=== PATIENT | male | born 1975 | race Caucasian/White ===

== ENCOUNTER → 2018-07-25 17:45 | Outpatient (CLI) | payer OTHER, SELFPAY | PROVIDERS: Family Provider Family Medicine; PCP Family Medicine; Referring Provider Physician Assistant; Visit Provider Physician Assistant | DX: J02.9 Acute pharyngitis, unspecified (principal) | CPT/HCPCS: 87081 ==

== ENCOUNTER → 2018-12-25 | Outpatient (CLI) | payer OTHER, SELFPAY ==
--- NOTE | 2018-12-25 07:45 | VDLE_ITS ---
Reason For Study: venous insufficinecy RIGHT LEFT CFV is compressible, spontaneous, phasic, CFV is compressible, spontaneous, phasic, competent and demonstrates normal competent, and demonstrates normal augmentation. augmentation. FV is compressible, spontaneous, phasic, FV is compressible, spontaneous, phasic, competent and demonstrates normal competent and demonstrates normal augmentation. augmentation. POP V is compressible, spontaneous, phasic, POP V is compressible, spontaneous, phasic, competent and demonstrates normal competent and demonstrates normal augmentation. augmentation. T/P Trunk is compressible. T/P Trunk is compressible. PTV is compressible. PTV is compressible. RT PerV is compressible. LT PerV is compressible. S-F Junction is incompetent for greater S-F Junction is competent. than .5 seconds. GSV is incompetent for greater than .5 GSV is incompetent for greater than .5 seconds. GSV measures .52 x .6 cm. seconds. GSV measures .6 x .73 cm. SSV is incompetent for greater than .5 SSV is incompetent for greater than .5 seconds. SSV measures .2 x .22 cm. seconds. SSV measures .27 x .25 cm. ASV below the knee is incompetent for greater ASV below the knee is incompetent for greater than .5 seconds. ASV measures .16 x .16 cm. than .5 seconds. ASV measures .2 x .22 cm. Transit Operator Vein 12 cm proximal to the medial Transit Operator Vein 7 cm proximal to the medial malleolus is incompetent for greater than .5 malleolus is incompetent for greater than .5 seconds. seconds. Procedure Exam performed in department. The exam was diagnostic. Patient was scanned in reverse Trendelenburg position during reflux assessment. Interpretation Summary Deep veins of the lower extremities are bilaterally patent and compressible segmentally. There is no evidence of deep vein thrombosis on either side. Valvular competence appears intact within the proximal deep venous systems bilaterally. The greater saphenous veins appear bilaterally patent and compressible segmentally. The right sapheno-femoral junction is incompetent . The left sapheno- femoral junction is competent . Segmental valvular incompetence is noted within the greater saphenous veins bilaterally. Small saphenous veins are patent and incompetent bilaterally. An incompetent accessory saphenous vein is noted below the knee in both lower extremities. An incompetent boarding room fixer vein is noted in the right calf, located 7 centimeters proximal to the right medial malleolus. An incompetent boarding room fixer vein is noted in the left calf, located 12 centimeters proximal to the left medial malleolus. Ordering Physician: Harry Lujan Referring Physician: Harry Lujan Performed By: Renny León, RVT
== END | disposition home or self-care (01) ==
LOC: CVS 07:43
PROVIDERS: Family Provider Family Medicine; PCP Family Medicine; Referring Provider Family Medicine; Visit Provider Family Medicine
DX: I87.2 Venous insufficiency (chronic) (peripheral) (principal); I83.893 Varicose veins of bilateral lower extremities with other complications
CPT/HCPCS: 93970

== ENCOUNTER 2019-08-01 05:59 | Day surgery (SDC) | payer OTHER, SELFPAY ==
[2018-07-25 13:20] VITALS: BMI 36.3
--- NOTE | 2019-07-20 20:31 | HP.PCM_ITS ---
(1) Chronic venous insufficiency Status: Chronic Code(s): I87.2 - Venous insufficiency (chronic) (peripheral) (2) Varicose veins with inflammation Status: Chronic Code(s): I83.10 - Varicose veins of unspecified lower extremity with inflammation (3) Leg pain, bilateral Status: Chronic Code(s): M79.604 - Pain in right leg; M79.605 - Pain in left leg (4) Lipodermatosclerosis of right lower extremity Status: Chronic Code(s): I83.11 - Varicose veins of right lower extremity with inflammation (5) Hyperpigmentation Status: Chronic Code(s): L81.9 - Disorder of pigmentation, unspecified History of Present Illness Date of Service: 08/01/19 Chief Complaint: Chronic venous insufficiency, varicose veins with inflammation, leg pain?right lower extremity History of Wound: This is a 43-year-old male with a long-standing history of chronic venous disease. He suffers from chronic venous insufficiency, varicose veins with inflammation, and leg pain in both lower extremities. He complains of pain, aching, discomfort, and heaviness in his lower extremities. The symptoms have persisted for many years, and are becoming increasingly more severe. He denies swelling in his lower extremities. He is undergone no prior vein procedures in the past. The patient is active. He sleeps in a flat position at night. His duplex examination has been performed, revealing incompetence of the right great saphenous vein, the right small saphenous vein, and accessory saphenous vein below the right knee, and a sound editor vein located 7 cm proximal to the right medial malleolus. The implications of this diagnosis were discussed with the patient in detail. The options of management were fully explained. Conservative treatment measures were implemented, including leg elevation, avoidance of idle standing and sitting, graduated compression stockings, weight control measures, active lifestyle, [id number] analgesics, etc. Despite these conservative treatment measures, the patient has remained symptomatic, with symptoms which have adversely affect her daily activities, quality of life, and job functions. Past Medical History Past Medical History: Chronic Problems (Last Reviewed 08/18/18 @ 13:15 by Aimee Galvan) Chronic venous insufficiency (Chronic) Varicose veins with inflammation (Chronic) Leg pain, bilateral (Chronic) Lipodermatosclerosis of right lower extremity (Chronic) Hyperpigmentation (Chronic) Past Medical History: Patient has a history of hypertension, hyperlipidemia, gout, and tobacco use. His history is negative for myocardial infarction, congestive heart failure, diabetes mellitus, cerebrovascular accident, cancer, renal disease, pulmonary disease, thyroid disease, peripheral arterial occlusive disease, gastroesophageal reflux disease, and arthritis. Surgical History: appendectomy, tonsillectomy, - - The patient has undergone surgery on his left ring finger, and vasectomy. Allergies/Adverse Reactions: Allergies No Known Allergies Allergy (Unverified 08/18/18 13:14) Home Medications: Ambulatory Orders Medication Instructions Recorded allopurinol 100 mg tablet 100 mg PO DAILY 07/25/18 hydrochlorothiazide 12.5 mg tablet 12.5 mg PO DAILY 07/25/18 losartan 50 mg tablet 50 mg PO DAILY 07/25/18 potassium chloride ER 10 mEq 10 meq PO DAILY 07/25/18 capsule,extended release erythromycin 5 mg/gram (0.5 %) eye 1 applic OPHTHALMIC (EYE) TID #3.5 08/18/18 ointment g - Family History Paternal Family History: Family History (Last Reviewed 08/18/18 @ 13:15 by Aimee Galvan) Other CVA (cerebral vascular accident) Cancer Hypertension - - Patient's father at the age of 59 with a history of lymphoma and liver cancer. The patient's mother is living, age 70, with a history of cerebrovascular accident, hypertension, and obesity. Social History: The patient is employed as a registered nurse at [employer]. Lives: Spouse/ Significant Other Smoking Status: Never smoker Tobacco Use: Chew Alcohol: Occasional Drugs: None Review of Systems Constitutional: Denies: Chills, Fever, Weight Change Eyes: Denies: Pain, Vision Change HEENT: Denies: Difficulty Hearing, Difficulty Swallowing, Sinus Congestion Cardiovascular: Denies: Chest Pain, Palpitations Respiratory: Denies: Cough, Shortness of Breath Gastrointestinal: Denies: Diarrhea, Nausea, Vomiting Genitourinary: Denies: Dysuria, Hematuria Endocrine: Denies: Heat/ Cold Intolerance, Polydipsia, Polyuria Hematologic/ Lymphatic: Denies: Easy Bruising, Easy Bleeding - Physical Exam General: Alert, Oriented x3, Cooperative, No apparent distress, Well developed, Well nourished HEENT: Atraumatic, PERRLA, EOMI, Normocephalic Oral: Moist Mucosa, No Gingival or Mucosal Lesions/ Ulcerations Neck: Supple, No JVD, Negative Carotid Bruits, Negative Hepatojugular Reflux, No Nodes, No Nuchal Rigidity, Trachea Midline Lungs: Clear to auscultation, Normal air movement, No rhonchi, No wheeze, No rales Cardiovascular: Regular rate, Regular Rhythm, Normal S1, Normal S2, No murmurs Abdomen: Soft, Non Tender, Non-Distended Extremities: No clubbing, No cyanosis, No edema, No Calf Tenderness, - - Peripheral extremities are warm and well-perfused. Lipodermatosclerosis and hyperpigmentation is noted in the right medial gaiter area, and in the right medial supramalleolar area. Skin: No rashes, No breakdown Musculoskeletal: No Muscle Wasting Neurological: Cranial nerves II-XII grossly intact, Neuro grossly intact Psych/Mental Status: Normal Affect, Appropriate, Alert and oriented to time, place, person, mood and affect Assessment/Plan Assessment: This is a 43-year-old male with a long-standing history of chronic venous insufficiency, varicose veins with inflammation, leg pain involving his lower extremities. Conservative treatment measures have been implemented, which have failed to alleviate the patient's symptoms of pain, aching, and discomfort in his lower extremities. The patient's symptoms adversely affect his quality o f life, job functions, and daily activities. The indications and risks of endovenous laser ablation of the right great saphenous vein, the right small saphenous vein, the right accessory saphenous vein below the knee, and possibly the right incompetent sound editor vein located 7 cm proximal to the right medial malleolus have been discussed with the patient in detail. Plan: Patient is to be admitted for elective endovenous laser ablation of the right great saphenous vein, the right small saphenous vein, the right accessory saphenous vein below the knee, and possibly the incompetent right calf sound editor vein located 7 cm proximal to the right medial malleolus. The indications and risks of the procedure have been discussed with the patient in detail. The appropriate preprocedure consent process has been undertaken.
[2019-08-01 06:18] VITALS: BP 138/90; PULSE 70; RESP 16; TEMP 36.6; O2SAT 97; BMI 35.4
[2019-08-01] MEDS: Lactated Ringers 1,000 ML 150 ML IV (06:29)
[2019-08-01] MEDS: Enoxaparin 30 MG/0.3 ML Syringe SC (06:40)
[2019-08-01] MEDS: Cefazolin 2 GM in 0.9% Normal Saline 100 ML IV (07:30)
--- NOTE | 2019-08-01 09:58 | DCINST_ITS ---
Discharge Diet: No Restrictions Discharge Activity: May Not Drive May shower in (days): 2 Weight Bearing Status: Weight bearing as tolerated Lifting Restrictions: 10 pounds Keep extremity elevated above heart level: Right Leg Call your doctor if your incision/area has: Continuous Slow Oozing Call your doctor if you observe: Inability to urinate, Shortness of breath, Dizziness, Chest pain, Prolonged hiccoughing, Increased palpitations (irregular heartbeat), Uncontrolled pain Suture Line Care: Avoid Pulling/Pushing Change Dressing in (Days):: 2 - Then rewrap with Naveen daily from base of toes to upper thigh Allergies/Adverse Reactions: Allergies No Known Allergies Allergy (Unverified 08/01/19 06:17) Medications to take at Discharge allopurinol 100 mg tablet 200 mg PO DAILY 07/25/18 hydrochlorothiazide 12.5 mg tablet 25 mg PO DAILY 07/25/18 losartan 50 mg tablet 50 mg PO DAILY 07/25/18 Primary Care Physician: Harry Lujan DO [Primary Care Provider] - Test Results: Test results from this visit will be discussed in further detail at your follow- up appointment, if applicable. Please Follow Up With: Rafael Morton MD - Call [phone] to schedule a followup appointment. When: 10-14 days
[2019-08-01 10:01] VITALS: BP 110/66; BP 138/90; PULSE 79; RESP 16; TEMP 36.7; O2SAT 92
[2019-08-01 10:15] VITALS: BP 106/65; BP 138/90; PULSE 77; RESP 16; O2SAT 92
[2019-08-01 10:30] VITALS: BP 123/75; BP 138/90; PULSE 80; RESP 16; O2SAT 94
[2019-08-01 10:36] VITALS: BP 115/73; BP 138/90; PULSE 78; RESP 16; O2SAT 94
[2019-08-01] MEDS: oxyCODONE 5 MG Tablet PO (11:12)
[2019-08-01 11:51] VITALS: BP 114/71; BP 138/90; PULSE 74; RESP 16; TEMP 36.6; O2SAT 92
--- NOTE | 2019-08-11 13:46 | OP.PCM_ITS ---
Problem List (1) Chronic venous insufficiency Status: Chronic (2) Varicose veins with inflammation Status: Chronic (3) Leg pain, bilateral Status: Chronic (4) Lipodermatosclerosis of right lower extremity Status: Chronic (5) Hyperpigmentation Status: Chronic Report of Operation Date of Procedure: 08/01/19 Pre-Operative Diagnosis: Chronic venous insufficency , Varicose veins with inflamation, Leg pain, Lipodermatosclerosis, Hyperpigmentation - Right lower extremity Post-Operative Diagnosis: Chronic venous insufficency , Varicose veins with inflamation, Leg pain, Lipodermatosclerosis, Hyperpigmentation - Right lower extremity Surgery/Procedure Performed:: 1. Endovenous laser aation of the right great saphenous vein. 2. Endovenous laser ablation of the right small saphenous vein. 3. Endovenous laser ablation of the right accessory saphenous vein Description of Surgical Findings:: As above Type of Anesthesia:: General, Tumescent Specimen's removed: None Drains: None Estimated Blood Loss (mL): Minimal Description of Procedure: This is a 43-year-old male with a long-standing history of chronic venous insufficiency, varicose veins with inflammation, leg pain, and chronic venous skin changes affecting his right lower extremity. Venous duplex examination has been performed, revealing incompetence of the right great saphenous vein, the right small saphenous vein, the right accessory saphenous vein below the knee, and an incompetent crotch piece baster vein located approximately 7 cm proximal to the right medial malleolus. The implications of this diagnosis were discussed with the patient in detail. The options of management were fully explained. Conservative treatment measures were implemented, which included leg elevation, avoidance of idle standing and sitting, graduated compression stockings, weight control measures, active lifestyle, [id number] analgesics, etc. Despite these measures, the patient remained symptomatic, with symptoms which adversely affect her daily activities, quality of life, and job functions. The indications and risks of endovenous laser ablation of the right great saphenous vein, right small saphenous vein, right accessory saphenous vein, and incompetent right calf crotch piece baster vein were discussed with the patient in detail. The appropriate preprocedure consent process was undertaken. The patient underwent ultrasound marking of the right great saphenous vein, the right small saphenous vein, the right accessory saphenous vein below the knee, and the right incompetent crotch piece baster vein preoperatively. He was then brought to the operating room suite, placed supine upon the operating room table, where general anesthesia was administered by the anesthesia staff. The patient's right lower extremity and right groin were prepped and draped in the appropriate sterile manner. Patient was placed in reverse Trendelenburg position. Ul trasonography was used to image the right great saphenous vein in the distal calf. The micropuncture technique was used to access her right great saphenous vein percutaneously in the distal calf, inferior to the communication of the great saphenous vein with the incompetent crotch piece baster vein. In this regard, the decision was made to ablate the great saphenous vein across the origin of the incompetent crotch piece baster vein, thereby alleviating the need to perform endothermal ablation of the incompetent crotch piece baster vein itself. In this manner, a 0.018 inch guidewire was advanced intraluminally into the right great saphenous vein, and was visualized by ultrasonography. A micropuncture sheath was advanced over the guidewire. The 0.018 inch guidewire was exchanged for a 0.035 inch guidewire, which was then advanced intraluminally to a level just distal to the right sapheno?femoral junction, as confirmed by ultrasound imaging. A long 4 [place] sheath was then advanced over the guidewire, and its tip was positioned approximately 2 cm distal to the right sapheno?femoral junction. Attention was then directed to the incompetent right small saphenous vein. To enhance exposure, the right lower extremity was placed in an externally rotated position with the right knee flexed. Using ultrasound imaging and the micropuncture technique, a micropuncture sheath was introduced intraluminally into the right great saphenous vein near the inferior border of the right gastrocnemius muscle, and was left in place, capped, for subsequent access purposes. Attention was then directed to the incompetent right accessory saphenous vein below the knee. Using ultrasound imaging and the micropuncture technique, a micropuncture sheath was introduced intraluminally and was left in place, capped, for subsequent access purposes. Attention was then directed to the long 4 [place] sheath which had been previously placed intraluminally within the right great saphenous vein. Perivenous tumescent anesthesia was injected from the 4 [place] sheath exit site up to the tip of the sheath near the right sapheno?femoral junction. This was performed segmentally using ultrasound imaging. The AngioD[employer] laser fiber was then introduced into the 4 [place] sheath and coupled appropriately. Ultrasonography was used to confirm that the tip of the laser fiber was positioned within the right great saphenous vein, approximately 2-1/2 cm distal to the right sapheno-femoral junction. The patient was placed in Trendelenburg position and the laser fiber was activated. The AngioDynamics laser was slowly withdrawn at a constant rate throughout the length of the right great saphenous vein, thereby ablating the right great saphenous vein segmentally. The energy applied was approximately 60 to 80 J/cm. Following the laser ablation, the laser fiber and sheath were removed, and manual pressure was briefly applied to the percutaneous access site to achieve hemostasis. Attention was then directed to the micropuncture sheath which had been previously placed intraluminally within the right small saphenous vein. A 0.035 inch guidewire was introduced intraluminally and its tip was positioned within the proximal portion of the right small saphenous vein. A long 4 [place] sheath was advanced over the guidewire and into position intraluminally within the right small saphenous vein. Perivenous tumescent anesthesia was injected from the 4 [place] sheath exit site up to the tip of the sheath. This was performed segmentally using ultrasound imaging. The AngioDynamics laser fiber was then introduced into the 4 [place] sheath and coupled appropriately. Ultrasonography was used to confirm that the typical laser fiber was positioned within the proximal portion of the right small saphenous vein, several centimeters distal to its junction with the deep venous system, and remaining within the superficial portion of the right small saphenous vein. The patient was placed in Trendelenburg position and the laser fiber was activated. The AngioDynamics laser was slowly withdrawn at a constant rate throughout the length of the right small saphenous vein, thereby ablating the right small saphenous vein segmentally. The energy applied was approximately 60 to 80 J/cm. Following the laser ablation, the laser fiber and sheath were removed, and manual pressure was briefly applied to the percutaneous access site to achieve hemostasis. Attention was then directed to the micropuncture sheath which had been previously placed intraluminally within the right accessory saphenous vein below the knee. A 0.035 inch guidewire was introduced intraluminally and its tip was positioned within the proximal portion of the incompetent accessory saphenous vein. The long 4 [place] sheath was advanced over the guidewire and into position intraluminally within the incompetent accessory saphenous vein. Perivenous tumescent anesthesia was injected from the 4 [place] sheath exit site up to the tip of the sheath. This was performed segmentally using ultrasound imaging. The AngioDynamics laser fiber was then introduced into the 4 [place] sheath and coupled appropriately. Ultrasonography was used to confirm that the tip of the laser fiber was positioned within the proximal portion of the incompetent accessory saphenous vein, abutting the previously ablated great saphenous vein. The patient was placed in Trendelenburg position and the laser fiber was activated. The AngioDynamics laser was slowly withdrawn at a constant rate throughout the length of the incompetent accessory saphenous vein, thereby ablating the accessory saphenous vein segmentally. The energy applied was approximately 60 to 80 J/cm. Following the laser ablation, the laser fiber and sheath were removed, and manual pressure was briefly applied to the percutaneous access site to achieve hemostasis. After assuring satisfactory hemostasis, the access sites were approximated using Cavilon and Steri-Strips. Dry sterile gauze dressings were applied over each of the access sites, and the leg was wrapped from the base of the toes to the upper thigh with Kerlix, followed by Naveen wrap. The blood loss for the procedure was minimal. The sponge, needle, and instrument counts at the end of the procedure were correct. The patient tolerated the procedure well and was transported from the operating room to the postanesthesia care unit in stable condition. The amount of tumescent anesthesia utilized, number of joules applied, and treatment times were recorded separately. - Complications None - Admit VTE Documentation VTE Present on Admission: No VTE Mechan Device Prophylaxis: SCD's VTE Pharm Prophylaxis ordered?: Yes
== END 2019-08-01 11:58 | disposition home or self-care (01) ==
LOC: SDC 06:01 → AC 06:01
PROVIDERS: Family Provider Family Medicine; PCP Family Medicine; Referring Provider Surgery; Visit Provider Surgery
PROC: (CPT 36478; principal; 2019-08-01 07:15)
DX: I87.2 Venous insufficiency (chronic) (peripheral) (principal); M79.604 Pain in right leg; M79.605 Pain in left leg; I10 Essential (primary) hypertension; E78.5 Hyperlipidemia, unspecified; M10.9 Gout, unspecified; L81.9 Disorder of pigmentation, unspecified; F17.220 Nicotine dependence, chewing tobacco, uncomplicated; Z79.899 Other long term (current) drug therapy
CPT/HCPCS: 36478; 36479; 93971; J7040; J7120; J2405

== ENCOUNTER → 2019-08-06 10:55 | Outpatient (CLI) | payer OTHER, SELFPAY ==
[2019-08-01 06:18] VITALS: BMI 35.4
--- NOTE | 2019-08-06 10:58 | VDLE_ITS ---
Reason For Study: pain RIGHT LEFT GSV is normal. CFV is compressible, spontaneous, phasic, CFV is compressible, spontaneous, phasic, competent, and demonstrates normal competent and demonstrates normal augmentation. augmentation. FV is compressible, spontaneous, phasic, competent and demonstrates normal augmentation. POP V is compressible, spontaneous, phasic, competent and demonstrates normal augmentation. T/P Trunk is compressible. PTV is compressible. RT PerV is compressible. Gastroc V is dilated and noncompressible. Varicose veins below the knee are dilated and noncompressible. GSV, SSV, and ASV x 2 are occluded S/P EVLA. Procedure Exam performed in department. The exam was diagnostic. A preliminary report was called and/or faxed to Dr. Morton. Interpretation Summary Acute deep vein thrombosis is noted in the right gastrocnemius vein. The remainder of the right lower extremity deep venous system is patent and compressible. Valvular competence appears intact within the proximal deep venous system on the right . The right great saphenous vein, small saphenous vein, and accessory saphenous veins are occluded, consistent with a prior endothermal ablation procedure. Ordering Physician: Rafael Morton Performed By: Renny León RVT
== END ==
PROVIDERS: Family Provider Family Medicine; PCP Family Medicine; Referring Provider Surgery; Visit Provider Surgery
DX: M79.89 Other specified soft tissue disorders (principal); R52 Pain, unspecified; L53.9 Erythematous condition, unspecified; Z98.890 Other specified postprocedural states
CPT/HCPCS: 93971

== ENCOUNTER → 2019-09-03 07:46 | Outpatient (CLI) | payer OTHER, SELFPAY ==
--- NOTE | 2019-09-03 07:48 | VDLE_ITS ---
Reason For Study: DVT, chronic venous insufficiency RIGHT CFV is compressible, spontaneous, phasic, competent and demonstrates normal augmentation. FV is compressible, spontaneous, phasic, competent and demonstrates normal augmentation. POP V is compressible, spontaneous, phasic, competent and demonstrates normal augmentation. T/P Trunk is compressible. PTV is compressible. RT PerV is compressible. Chronic vein wall thickening is noted in the Gastroc V. GSV, SSV, and ASV x 2 are occluded S/P EVLA. Procedure Exam performed in department. The exam was diagnostic. Interpretation Summary Deep veins of the right lower extremity are patent and compressible segmentally. There is no evidence of right lower extremity deep vein thrombosis. Valvular competence appears intact within the proximal deep venous system on the right . Chronic vein wall thickening is noted in the right gastrocnemius vein, with resolution of the acute deep vein thrombosis previously identified on 08/06/2019. The right great saphenous vein, small saphenous vein, and accessory saphenous veins are occluded, consistent with a prior endothermal ablation procedure. Ordering Physician: Rafael Morton Performed By: Renny León RVT
== END ==
PROVIDERS: Family Provider Family Medicine; PCP Family Medicine; Referring Provider Surgery; Visit Provider Surgery
DX: I83.10 Varicose veins of unspecified lower extremity with inflammation (principal); I82.461 Acute embolism and thrombosis of right calf muscular vein
CPT/HCPCS: 93971

== ENCOUNTER 2021-07-02 05:58 | Day surgery (SDC) | payer OTHER, SELFPAY ==
[2021-07-02 06:16] VITALS: BP 125/84; PULSE 79; RESP 16; TEMP 36.1; O2SAT 99; BMI 34.8
--- NOTE | 2021-07-02 06:19 | PCM.HP.STD ---
HPI - General HPI Narrative HUGO GRACIA, is a 45 M who presents for screening colonoscopy. He has had no particular complaints. He has no family history of colon cancer. No bright red blood per rectum or melena. He did have right lower extremity venous ablation related to that a DVT and was on therapeutic anticoagulants for appropriate period of time. He is not currently on that. He does have hypertension and gout. No documented heart disease. No glucose intolerance. PFSH Medical History Alcohol use Back pain Chewing tobacco use DVT (deep venous thrombosis) Fracture of finger Gout History of edema History of stress test HTN (hypertension) Loss of consciousness Smoker Home Medications allopurinol 100 mg tablet 300 mg PO DAILY 07/25/18 [History Last Taken Unknown] hydrochlorothiazide 12.5 mg tablet 25 mg PO DAILY 07/25/18 [History Last Taken Unknown] losartan 50 mg tablet 50 mg PO DAILY 07/25/18 [History Last Taken 07/02/21 05:00] multivitamin 1 tab PO DAILY 06/25/21 [History Last Taken Unknown] Allergy/AdvReac Type Severity Reaction Status Date / Time No Known Allergies Allergy Verified 07/02/21 06:15 Family History Other CVA (cerebral vascular accident) Cancer Hypertension Surgical History (Updated 06/25/21 @ 14:32 by Tory Michele) History of appendectomy History of tonsillectomy Hx of surgical procedure Hx of vasectomy Social History (Updated 08/18/18 @ 13:32 by Harry RAMOS, RACHEL) Smoking Status: Current every day smoker tobacco type: smokeless tobacco alcohol intake: current Alcohol type: beer ROS Constitutional Constitutional: Reports systems reviewed and no addt'l complaints, except as documented Cardiovascular Cardiovascular: Denies chest pain Respiratory/Chest Respiratory/Chest: Denies shortness of breath at rest Gastrointestinal Gastrointestinal: Denies abdominal pain, change in bowel habits, hematochezia or melena Physical Exam Const alert, oriented x3 and no apparent distress General Appearance: cooperative and comfortable Eyes General Eye: normal appearance of both eyes Neck General: normal visual inspection Chest inspection of chest normal Resp Effort and Inspection: able to speak in complete sentences and symmetric chest movement Auscultation: clear to auscultation bilaterally Cardio regular rate and regular rhythm GI soft to palpation, non-tender and non-distended Extremity no calf tenderness Neuro oriented x3 Psych thought process normal Assessment & Plan Assessment/Plan (1) Screening for intestinal cancer: PLAN: I recommend to the patient a screening colonoscopy with possible biopsy or polypectomy as indicated. He presents via open access today. He has had an opportunity to ask and have questions answered. This will be his first screening colonoscopy. Robin Echevarria M.D., F.A.C.S.
[2021-07-02] MEDS: Lactated Ringers 1,000 ML 100 ML IV (06:29)
[2021-07-02 07:15] VITALS: BP 116/71; BP 125/84; PULSE 72; RESP 16; TEMP 36.2; O2SAT 96
--- NOTE | 2021-07-02 07:16 | OP.COLON_ITS ---
Patient Name: Chidi Gastelum Procedure Date: 07/02/2021 6:52 AM Date of : 1975 Age: 45 Procedure: Colonoscopy Indications: Screening for colorectal malignant neoplasm Providers: Robin Echevarria MD Medicines: See the Anesthesia note for documentation of the administered medications Patient Profile: Last Colonoscopy: none. The patient's first colonoscopy is today. Complications: No immediate complications. Procedure: Pre-Anesthesia Assessment: - Prior to the procedure, a History and Physical was performed, and patient medications and allergies were reviewed. The patient's tolerance of previous anesthesia was also reviewed. The risks and benefits of the procedure and the sedation options and risks were discussed with the patient. All questions were answered, and informed consent was obtained. Prior Anticoagulants: The patient has taken no previous anticoagulant or antiplatelet agents. ASA Grade Assessment: II - A patient with mild systemic disease. After reviewing the risks and benefits, the patient was deemed in satisfactory condition to undergo the procedure. After I obtained informed consent, the scope was passed under direct vision. Throughout the procedure, the patient's blood pressure, pulse, and oxygen saturations were monitored continuously. The colonoscope was introduced through the anus and advanced to the cecum, identified by appendiceal orifice and ileocecal valve. The colonoscopy was performed without difficulty. The patient tolerated the procedure well. The quality of the bowel preparation was good. The ileocecal valve and the appendiceal orifice were photographed. Scope In: 7:02:32 AM Scope Withdrawal Time 0 hours 6 minutes 26 seconds Scope Out: 7:11:51 AM Total Procedure Duration Time 0 hours 9 minutes 19 seconds Findings: The digital rectal exam findings include non-thrombosed internal hemorrhoids and internal hemorrhoids that prolapse with straining, but spontaneously regress to the resting position (Grade II). Pertinent negatives include normal prostate (size, shape, and consistency). A few diverticula were found in the sigmoid colon. The exam was otherwise without abnormality. Impression: - Non-thrombosed internal hemorrhoids and internal hemorrhoids that prolapse with straining, but spontaneously regress to the resting position (Grade II) found on digital rectal exam. - Diverticulosis in the sigmoid colon. - The examination was otherwise normal. - No specimens collected. Recommendation: - Discharge patient to home. - Resume previous diet. - Continue present medications. - Repeat colonoscopy in 10 years for screening purposes. Procedure Code(s): --- Professional --- 00533, Colonoscopy, flexible; diagnostic, including collection of specimen(s) by brushing or washing, when performed (separate procedure) Diagnosis Code(s): --- Professional --- Z12.11, Encounter for screening for malignant neoplasm of colon K64.1, Second degree hemorrhoids K57.30, Diverticulosis of large intestine without perforation or abscess without bleeding CPT copyright 2017 [employer]. All rights reserved. The codes documented in this report are preliminary and upon direct care professional review may be revised to meet current compliance requirements. Robin Echevarira MD 07/02/2021 7:15:45 AM This report has been signed electronically. Number of Addenda: 0 Note Initiated On: 07/02/2021 6:52 AM
--- NOTE | 2021-07-02 07:17 | OP.CCLET_ITS ---
07/02/2021 Harry Lujan [address] [place] [address] Re : Colonoscopy procedure for Chidi Gastelum Dear Dr. Lujan This procedure was performed on Friday, July 02, 2021. My impressions and recommendations are as follows: Impressions : - Non-thrombosed internal hemorrhoids and internal hemorrhoids that prolapse with straining, but spontaneously regress to the resting position (Grade II) found on digital rectal exam. - Diverticulosis in the sigmoid colon. - The examination was otherwise normal. - No specimens collected. Recommendations : - Discharge patient to home. - Resume previous diet. - Continue present medications. - Repeat colonoscopy in 10 years for screening purposes. My findings are described in the full procedure note, which is enclosed. If I can be of further assistance, please feel free to contact me at Doctor phone number(s): Work: . Sincerely, Robin Echevarria MD 07/02/2021 7:15:45 AM This report has been signed electronically.
[2021-07-02 07:20] VITALS: BP 110/71; BP 125/84; PULSE 70; RESP 16; O2SAT 96
[2021-07-02 07:25] VITALS: BP 113/68; BP 125/84; PULSE 75; RESP 16; O2SAT 97
[2021-07-02 07:29] VITALS: BP 116/70; BP 125/84; PULSE 65; RESP 16; TEMP 36.1; O2SAT 97
[2021-07-02 07:30] VITALS: BP 125/84
== END 2021-07-02 07:48 | disposition home or self-care (01) ==
LOC: EN 05:59 → AC 06:00
PROVIDERS: PCP Family Medicine; Referring Provider Family Medicine; Visit Provider Surgery
PROC: 0DJD8ZZ Inspection of Lower Intestinal Tract, Via Natural or Artificial Opening Endoscopic (ICD-10-PCS; CPT 45378; principal; 2021-07-02 06:55)
DX: K57.30 Diverticulosis of large intestine without perforation or abscess without bleeding (principal); K64.1 Second degree hemorrhoids; F17.220 Nicotine dependence, chewing tobacco, uncomplicated; I10 Essential (primary) hypertension; M10.9 Gout, unspecified; Z86.718 Personal history of other venous thrombosis and embolism; Z79.899 Other long term (current) drug therapy
CPT/HCPCS: 45378; J7120; J2405

== ENCOUNTER 2021-11-24 20:24 | Outpatient (CLI) | payer OTHER, SELFPAY | END 2021-11-24 23:59 | disposition home or self-care (01) | PROVIDERS: PCP Family Medicine; Visit Provider Family Medicine | DX: R06.83 Snoring (principal); R06.81 Apnea, not elsewhere classified; I10 Essential (primary) hypertension | CPT/HCPCS: 95810 ==

== ENCOUNTER → 2022-01-24 | Outpatient (CLI) | payer OTHER, SELFPAY | END | disposition home or self-care (01) | PROVIDERS: PCP Family Medicine; Visit Provider Family Medicine | DX: G47.33 Obstructive sleep apnea (adult) (pediatric) (principal) | CPT/HCPCS: 95811 ==

== ENCOUNTER → 2024-01-09 | Outpatient (CLI) | payer OTHER, SELFPAY ==
--- NOTE | 2024-01-09 16:48 | RAD_ITS ---
STUDY: X-RAY - LEFT FOOT CLINICAL: Male, 48 years old. L FOOT PAIN TECHNIQUE: 3 view(s) of the foot. COMPARISON: None. FINDINGS: Normal talus, calcaneus, and tarsal bones. Small plantar calcaneal enthesophyte. Tiny posterior calcaneal enthesophyte. Normal visualized subtalar, talonavicular, calcaneocuboid, tarsal and tarsometatarsal articulations. Normal metatarsi. Normal metatarsophalangeal joint of the great toe. Normal tibial and fibular sesamoid bones. Normal interphalangeal joint of the great toe. Normal phalanges of the great toe. Normal second through fifth metatarsophalangeal joints. Normal interphalangeal joints and phalanges of the lesser toes. The soft tissue structures are unremarkable. RAD/Foot min 3 Views IMPRESSION: Normal x-ray examination of the foot. Electronically Signed: Yash Harper MD at 0:11 EDT ,
== END | disposition home or self-care (01) ==
LOC: RAD 16:47
PROVIDERS: PCP Family Medicine; Referring Provider Family Medicine; Visit Provider Family Medicine
DX: M79.672 Pain in left foot (principal)
CPT/HCPCS: 73630

== ENCOUNTER → 2024-06-12 | Outpatient (CLI) | payer OTHER, SELFPAY ==
--- NOTE | 2024-06-12 10:45 | US_ITS ---
STUDY: SCROTUM ULTRASOUND REASON FOR EXAM: Male, 48 years old. L ORCHITIS recurrant TECHNIQUE: Ultrasound evaluation of the scrotum was performed with color Doppler and static garcia-scale imaging. COMPARISON: None. FINDINGS: RIGHT TESTICLE INTRATESTICULAR: There is a normal size of the right testicle. The right testicle measures 3.8 cm x 2.6 cm x 2.5 cm. There is a homogenous echotexture. There is normal arterial and normal venous vascularity. There is no demonstrated right testicular mass or cyst. EXTRATESTICULAR: The epididymis is normal in size. The epididymis head measures 1.1 cm x 1.2 cm x 0.7 cm. There is minimally increased (hyperemic) vascularity of the epididymis. There is no demonstrated epididymal cystic structure. There is a moderate size hydrocele. There is no demonstrated varicocele. There is no demonstrated extratesticular mass or cyst. LEFT TESTICLE INTRATESTICULAR: There is a normal size of the left testicle. The left testicle measures 4.7 cm x 2.8 cm x 2.6 cm. There is a homogenous echotexture. There is normal arterial and normal venous vascularity. There is no demonstrated left testicular mass or cyst. EXTRATESTICULAR: The epididymis is normal in size. The epididymis head measures 1.3 cm x 1.2 cm x 0.9 cm. There is normal vascularity of the epididymis. There is no demonstrated epididymal cystic structure. There is a large hydrocele. There is no demonstrated varicocele. There is no demonstrated extratesticular mass or cyst. US/Testicular with Arterial Flow IMPRESSION: Bilateral hydroceles left greater than right. Minimally increased vascularity of the right epididymis. Electronically Signed: Anthony Lemus MD at 12:03 EDT ,
== END | disposition home or self-care (01) ==
LOC: US 10:43
PROVIDERS: PCP Family Medicine; Referring Provider Family Medicine; Visit Provider Family Medicine
DX: N45.2 Orchitis (principal)
CPT/HCPCS: 76870; 93976

== ENCOUNTER 2024-07-24 08:59 | Day surgery (SDC) | payer OTHER, SELFPAY ==
[2024-07-24] VITALS (9 sets, daily range): BP systolic 127–146; BP diastolic 75–89; PULSE 56–74; RESP 16; TEMP 36.1–36.5; O2SAT 97–100; BMI 36.5
[2024-07-24] MEDS: Lactated Ringers 1,000 ML 15 ML IV (09:30)
[2024-07-24] MEDS: Bupivacaine Mpf 0.5% 30 ML VIAL (11:04)
[2024-07-24] MEDS: Cefazolin 2 GM in Syringe IV (11:31)
== END 2024-07-24 12:59 | disposition home or self-care (01) ==
LOC: SDC 09:00 → AC 09:02
PROVIDERS: PCP Family Medicine; Referring Provider Urology; Visit Provider Urology
PROC: (CPT 55040; principal; 2024-07-24 10:45)
DX: N43.3 Hydrocele, unspecified (principal); I10 Essential (primary) hypertension; M10.9 Gout, unspecified; F17.220 Nicotine dependence, chewing tobacco, uncomplicated; G47.30 Sleep apnea, unspecified; Z98.52 Vasectomy status; Z86.718 Personal history of other venous thrombosis and embolism; Z79.899 Other long term (current) drug therapy
CPT/HCPCS: 55040; 00920; 88302; J7120; J2405

== ENCOUNTER → 2025-06-16 | Outpatient (CLI) | payer OTHER, SELFPAY ==
[2025-06-16 11:40] LABS: PSA,Total - Annual Screen 0.41 ng/mL (0.02-4.00)
== END | disposition home or self-care (01) ==
PROVIDERS: PCP Family Medicine; Referring Provider Family Medicine; Visit Provider Family Medicine
DX: Z12.5 Encounter for screening for malignant neoplasm of prostate (principal)
CPT/HCPCS: 36415; 84153; G0103

== ENCOUNTER → 2025-07-09 | Outpatient (CLI) | payer OTHER, SELFPAY ==
--- NOTE | 2025-07-09 06:55 | CT_ITS ---
PROCEDURE: LIMITED CHEST CT CARDIAC ONLY 07/09/2025 REASON FOR EXAM: SCREENING Hypertension. TECHNIQUE: Procedure Code: [id number] Modality: CT Procedure: LIMITED CHEST CT CARDIAC ONLY One or more dose reduction techniques were used (e.g., Automated exposure control, adjustment of the mA and/or kV according to patient size, use of iterative reconstruction technique). RADIATION DOSE SUMMARY: CTDlvol: 22.58 mGy DLP: 361.30 mGycm COMPARISON: None. CT/Limited Chest CT Cardiac Only IMPRESSION: Limited imaging of the lungs demonstrates no acute process. No pleural effusion or pneumothorax is seen in visualized areas. No adenopathy is noted. The visualized upper abdomen demonstrates no significant abnormality. Reading Location: [id number]
--- OUTSIDE RECORDS SUMMARY | 2025-07-09 06:56 | XMS RPT_ITS | CCD ---
Author Organization [facility] Inform ion Partnership [facility] Care Team Providers Care Biztalk Architect Name Role Phone Dr. Harry Lujan DO Primary Care Physician [phone] Assessment, Health Risk Attending Physician Unav ailable Assessment, Health Risk Referring Provider Unava ilable Dr. Harry Lujan DO Attending Physician Dr. Harry Lujan DO Referring Provider Harry Lujna Referring Unavailable Harry Lujan Attending Unavailable Harry Lujan Primary Care Unavailable Harry Lujan Primary Care Unavailable Assessment, Health Risk Referring Unavaila ble Assessment, Health Risk Attending Unavaila ble Harry Lujan Referring Unavailable Harry Lujan Attending Unavailable Harry Lujan Primary Care Unavailable Harry Lujan Primary Care Unavailable Rafael Young Referring Unavailable Rafael Young Attending Unavailable Medications Current Medications Medication Drug Class(es) Dates Sig (Normalized) Sig (Original) allopurinol 100 mg oral tablet (2 sources) Xanthine Oxidase Inhibitor Start: 07-25-2018 take 3 tablets by mouth once daily Start: 07-25-2018 take 300 mg by mouth once olimpia y Allopurinol Active 300 MG PO DAILY July 25, 2018 1:00am cephalexin 500 mg oral capsule (1 source) Cephalosporin Antibacterial Start: 07-24-2024 take 1 capsule by mouth three times daily hydroCHLOROthiazide 12.5 mg oral tablet (2 sources) Thiazide Diuretic Start: 07-25-2018 take 2 tablets by mouth once daily Start: 07-25-2018 take 25 mg by mouth once daily Hydrochlorothiazide Active 25 MG PO DAILY July 25, 2018 1:00am losartan potassium 50 mg oral tablet (2 sources) Angiotensin 2 Receptor Kell Start: 07-25-2018 take 1 tablet by mouth once daily Multivitamin preparation (1 source) Start: 06-25-2021 take 1 tablet by mouth once daily Multivitamin Active 1 TABLET PO DAILY June 25, 2021 12:00am Multivitamin Tablet (1 source) Start: 06-25-2021 oxyCODONE hydrochloride 5 mg oral tablet (1 source) Opioid Agonist Start: 07-24-2024 take 1 tablet by mouth every six hours as needed for pain Completed/Discontinued Medications Medication Drug Class(es) Dates Sig (Normalized) Sig (Original) amoxicillin 875 mg / clavulanate 125 mg oral tablet (2 sources) Penicillin-class Antibacterial Start: 12-05-2022 End: 08-09-2023 Amoxicillin-Pot Clavulanate 875-125 mg tablet Discontinued 1 {tbl} PO TWICE A DAY December 05, 2022 12:00am August 09, 2023 10:05am Start: 12-05-2022 End: 08-09-2023 take 1 tablet by mouth twice daily Amoxicillin-Pot Clavulanate Discontinued 1 TABLET PO TWICE A DAY December 05, 2022 12:00am August 09, 2023 10:05am benzonatate 200 mg oral capsule (2 sources) Non-narcotic Antitussive Start: 12-05-2022 End: 08-09-2023 take 1 capsule by mouth three times daily as needed for cough Benzonatate 200 mg capsule Discontinued 200 mg PO THREE TIMES A DAY as needed for cough December 05, 2022 12:00am August 09, 2023 10:05am polymyxin b 61222 unt/ml / trimethoprim 1 mg/ml ophthalmic solution (2 sources) Dihydrofolate Reductase Inhibitor Antibacterial, Polymyxin-class Antibacterial Start: 08-09-2023 End: 08-19-2023 Polymyxin B Sulf-Trimethoprim 10,000 unit- 1 mg/mL drops Discontinued 1 - 2 NMA OPHTHALMIC .Q3-6H 10 10 August 09, 2023 1:00am August 18, 2023 1:00am August 19, 2023 1:28am while awake; do not exceed 6 doses in 24 hours Problems Active Problems Problem Classification Problem Date Documented Date Episodic/Chronic Acute bronchitis (2 sources) Acute bronchitis; Translations: [Acute bronchitis, unspecified] 12-05-2022 Episodic Inflammation; infection of eye (except that caused by tuberculosis or sexually transmitteddisease) (2 sources) Conjunctivitis; Translations: [Unspecified conjunctivitis] 08-09-2023 Episodic Other connective tissue disease (2 sources) Lipodermatosclerosis; Translations: [Panniculitis, unspecified] 07-20-2019 Episodic Other connective tissue disease (1 source) Pain in lower limb; Translations: [Pain in right leg] 07-20-2019 Episodic Other connective tissue disease (1 source) Pain in bilateral legs; Translations: [Pain in right leg] 07-20-2019 Episodic Other diseases of veins and lymphatics (2 sources) Peripheral venous insufficiency; Translations: [Venous insufficiency (chronic) (peripheral)] 07-20-2019 Episodic Other male genital disorders (1 source) Disorder of male genital organ; Translations: [Hydrocele, unspecified] 07-24-2024 Episodic Other screening for suspected conditions (not mental disorders or infectious disease) (4 sources) Patient encounter status; Translations: [Encounter for screening for malignant neoplasm of intestinal tract, unspecified] Onset: 06-21-2025 07-02-2021 Episodic Other skin disorders (2 sources) Hyperpigmentation of skin; Translations: [Disorder of pigmentation, unspecified] 07-20-2019 Episodic Other upper respiratory infections (4 sources) Acute maxillary sinusitis; Translations: [Acute maxillary sinusitis, unspecified] 12-05-2022 Episodic Varicose veins of lower extremity (2 sources) Venous varices; Translations: [Varicose veins of unspecified lower extremity with inflammation] 07-20-2019 Episodic Past or Other Problems Problem Classification Problem Date Documented Da te Episodic/Chronic Other male genital disorders (1 source) Hydrocele, unspecified; Translations: [Hydrocele, unspecified] Onset: 11-08-2024 Episodic Results Test Name Value Interpretation Reference Range Facility PSA,Total - Annual Screenon 06-16-2025 PSA,TOT SCREEN 0.41 ng/mL Normal 0.02-4.00 [facility] Comment on above: Result Comment: This test was performed using the [employer] tPSA method. Measured values of a patient??sample can vary depending on the testing procedure used. PSA values determined on patient samples by different testing procedures cannot be used interchangeably. If there is a change in PSA assays while monitoring therapy, sequential testing should be performed to confirm baseline values. Performed By: #### L 780.9968 #### [facility] [address] [place], [address] Absolute lymphocyte countOrd ered By: HEALTH ASSESSMENT on 06-02-2025 Lymphocytes Auto (Unsp spec) [#/Vol] 1.59 10*3/uL 0.83-4.51 [facility] Absolute neutrophil countOrd ered By: HEALTH ASSESSMENT on 06-02-2025 Neutrophils (Bld) [#/Vol] 4.1 10*3/uL 2.0-7.7 [facility] Absolute nucleated red blood cell countOrdered By: HEALTH ASSESSMENT on 06-02-2025 Nucleated RBC (Bld) [#/Vol] 0.00 10*3/uL 0-5 [facility] Anion gap in Serum or Plasma Ordered By: HEALTH ASSESSMENT on 06-02-2025 Anion gap [Moles/Vol] 11 mmol/L 5-15 [facility] Comment on above: Previous reported re sult: 12 Edited by: DAVID on 06/02/25:0855 AMENDED REPORT 06/02/25 0855 GAP previously reported as: 12 BUN/creatinine ratioOrdered By: HEALTH ASSESSMENT on 06-02-2025 Urea nitrogen/Creatinine [Mass ratio] 11.7 mg/mg 10-20 [facility] Comment on above: Previous reported re sult: 11.4 RATIOEdited by: DAVID on 06/02/25:0855 AMENDED REPORT 06/02/25 0855 BUN/CRE previously reported as: 11.4 RATIO Bilirubin Test strip Ql (U)O rdered By: HEALTH ASSESSMENT on 06-02-2025 Bilirubin Ql (U) Negative Negative [facility] Bilirubin directOrdered By: HEALTH ASSESSMENT on 06-02-2025 Bilirubin.direct [Mass/Vol] 0.26 mg/dL 0.00-0.30 [facility] Bilirubin, totalOrdered By: HEALTH ASSESSMENT on 06-02-2025 Bilirubin [Mass/Vol] 0.61 mg/dL 0.00-1.30 [facility] Comment on above: Previous reported re sult: 0.66 mg/dLEdited by: DAVID on 06/02/25:0855 AMENDED REPORT 06/02/25 0855 T BILI previously reported as: 0.66 mg/dL CBC, Employeeon 06-02-2025 Absolute Lymph 1.59 X10 3/uL Normal 0.83-4.51 [facility] Comment on above: Performed By: #### L 500.2900, L400.0100, L100.0200 #### [facility] [address] [place], [address] Absolute Neut 4.1 X10 3/uL Normal 2.0-7.7 [facility] Comment on above: Performed By: #### L 500.2900, L400.0100, L100.0200 #### [facility] [address] [place], [address] Basophils/100 WBC (Bld) 0.9 % Normal 0-1 [facility] Comment on above: Performed By: #### L 500.2900, L400.0100, L100.0200 #### [facility] [address] [place], [address] Eosinophils/100 WBC (Bld) 3.5 % Normal 0-5 [facility] Comment on above: Performed By: #### L 500.2900, L400.0100, L100.0200 #### [facility] [address] [place], [address] Erythrocyte distribution width (RBC) [Ratio] 12.5 % Normal 11.6-14.6 [facility] Comment on above: Performed By: #### L 500.2900, L400.0100, L100.0200 #### [facility] [address] [place], [address] Hematocrit (Bld) [Volume fraction] 45.4 % Normal 40-54 [facility] Comment on above: Performed By: #### L 500.2900, L400.0100, L100.0200 #### [facility] [address] [place], [address] Hemoglobin (Bld) [Mass/Vol] 15.7 g/dL Normal 13.0-16.5 [facility] Comment on above: Performed By: #### L 500.2900, L400.0100, L100.0200 #### [facility] [address], [address] Lymphocytes/100 WBC (Bld) 24.1 % Normal 19-41 [facility] Comment on above: Performed By: #### L 500.2900, L400.0100, L100.0200 #### [facility] [address] [place], [address] MCH (RBC) [Entitic mass] 30.6 pg Normal 27.0-32.0 [facility] Comment on above: Performed By: #### L 500.2900, L400.0100, L100.0200 #### [facility] [address] [place], [address] MCHC (RBC) [Mass/Vol] 34.6 g/dL Normal 32-36 [facility] Comment on above: Performed By: #### L 500.2900, L400.0100, L100.0200 #### [facility] [address] [place], [address] MCV (RBC) [Entitic vol] 88.5 fL Normal 80-94 [facility] Comment on above: Performed By: #### L 500.2900, L400.0100, L100.0200 #### [facility] [address] [place], [address] Monocytes/100 WBC (Bld) 9.4 % Normal 0-10 [facility] Comment on above: Performed By: #### L 500.2900, L400.0100, L100.0200 #### [facility] [address] [place], [address] Neutrophils/100 WBC (Bld) 61.9 % Normal 47-70 [facility] Comment on above: Performed By: #### L 500.2900, L400.0100, L100.0200 #### [facility] [address] [place], [address] NRBC # 0.00 10 3/uL Normal 0-5 [facility] Comment on above: Performed By: #### L 500.2900, L400.0100, L100.0200 #### [facility] [address] [place], [address] Nucleated RBC (Bld) [#/Vol] 0 10*3/uL Normal 0-5 [facility] Comment on above: Performed By: #### L 500.2900, L400.0100, L100.0200 #### [facility] [address] [place], [address] Platelet mean volume (Bld) [Entitic vol] 8.9 fL Normal 6.2-12.0 [facility] Comment on above: Performed By: #### L 500.2900, L400.0100, L100.0200 #### [facility] [address] [place], [address] Platelets (Bld) [#/Vol] 178 10*3/uL Normal 150-450 [facility] Comment on above: Performed By: #### L 500.2900, L400.0100, L100.0200 #### [facility] [address] [place], [address] RBC (Bld) [#/Vol] 5.13 10*6/uL Normal 4.6-6.2 [facility] Comment on above: Performed By: #### L 500.2900, L400.0100, L100.0200 #### [facility] [address], [address] RDW SD 41.0 fl Normal 35.1-43.9 [facility] Comment on above: Performed By: #### L 500.2900, L400.0100, L100.0200 #### [facility] [address] [place], [address] WBC (Bld) [#/Vol] 6.6 10*3/uL Normal 4.4-11.0 [facility] Comment on above: Performed By: #### L 500.2900, L400.0100, L100.0200 #### [facility] [address] [place], [address] Calculated very low density lipoprotein (VLDL) cholesterol measurementOrdered By: HEALTH ASSESSMENT on 06-02-2025 Calculated very low density lipoprotein (VLDL) cholesterol measurement 55 mg/dL High 5-40 [facility] Carbon dioxide, total [Moles /volume] in Central venous bloodOrdered By: HEALTH ASSESSMENT on 06-02-2025 CO2 [Moles/Vol] 25.3 mmol/L 21.0-32.0 [facility] Comment on above: Previous reported re sult: 25.2 mmol/LEdited by: AUTOINS on 06/02/25:0855 AMENDED REPORT 06/02/25854 CO2 previously reported as: 25.2 mmol/L Chloride assayOrdered By: ALTH ASSESSMENT on 06-02-2025 Chloride [Moles/Vol] 102 mmol/L 98-108 [facility] Comment on above: Previous reported re sult: 103 mmol/LEdited by: AUTOINS on 06/02/25:0855 AMENDED REPORT 06/02/25 0855 CL previously reported as: 103 mmol/L [employer] CHOL:HDL 3.95 Normal [facility] Comment on above: Performed By: #### L 500.2900, L400.0100, L100.0200 #### [facility] [address] [place], [address] Cholesterol [Mass/Vol] 146 mg/dL Normal <=200 [facility] Comment on above: Result Comment: Chol esterol level, Desirable <200 mg/dL Borderline high cholesterol 200-239 mg/dL High cholesterol >=240 mg/dL Recommendations of the NCEP Adult Treatment Panel for the following risk-cutoff thresholds for the [place] population. Performed By: #### L 500.2900, L400.0100, L100.0200 #### [facility] [address] [place], [address] Cholesterol in HDL [Mass/Vol] 37 mg/dL Low [facility] Comment on above: Result Comment: Lennie onal Cholesterol Education Program (NCEP) guidelines: <40 mg/dL: Low HDL-cholesterol (major risk factor for CHD) >= 60 mg/dL: High HDL-cholesterol (negative risk factor for CHD) HDL-cholesterol is affected by a number of factors, e.g. smoking, exercise, hormones, sex and age. Performed By: #### L 500.2900, L400.0100, L100.0200 #### [facility] [address] [place], [address] Cholesterol in LDL [Mass/Vol] 54 mg/dL Normal [facility] Comment on above: Result Comment: Bord wrcwpf=349-375 mg/dL Higher Qnje=567 mg/dL or greater Friedwald Equation for LDL-C Performed By: #### L 500.2900, L400.0100, L100.0200 #### [facility] [address] [place], [address] Cholesterol in VLDL [Mass/Vol] 55 mg/dL High 5-40 [facility] Comment on above: Performed By: #### L 500.2900, L400.0100, L100.0200 #### [facility] [address] [place], [address] LDH 187 U/L Normal 87-241 [facility] Comment on above: Performed By: #### L 500.2900, L400.0100, L100.0200 #### [facility] [address] [place], [address] Phosphate [Mass/Vol] 2.5 mg/dL Low 2.7-4.5 [facility] Comment on above: Performed By: #### L 500.2900, L400.0100, L100.0200 #### [facility] [address] [place], [address] Triglyceride [Mass/Vol] 276 mg/dL High [facility] Comment on above: Result Comment: The drugs N-Acetylcysteine and Metamizole may falsely depress this assay. Normal range: <150 mg/dL Borderline High: 150-199 mg/dL High: 200-499 mg/dL Very High: >500 mg/dL Performed By: #### L 500.2900, L400.0100, L100.0200 #### [facility] [address] [place], [address] URIC 5.7 mg/dL Normal 3.5-7.2 [facility] Comment on above: Result Comment: The drugs N-Acetylcysteine and Metamizole may falsely depress this assay. Performed By: #### L 500.2900, L400.0100, L100.0200 #### [facility] [address] [place], [address] Erythrocyte distribution wid th ratioOrdered By: HEALTH ASSESSMENT on 06-02-2025 Erythrocyte distribution width (RBC) [Ratio] 12.5 % 11.6-14.6 [facility] Erythrocyte distribution wid th standard deviationOrdered By: HEALTH ASSESSMENT on 06-02-2025 Erythrocyte distribution width (RBC) [Ratio] 41.0 fl 35.1-43.9 [facility] Glomerular filtration rate ( GFR) estimation/1.73 sq m using serum, plasma, or whole bOrdered By: HEALTH ASSESSMENT on 06-02-2025 GFR/1.73 sq M.predicted among non-blacks MDRD (S/P/Bld) [Vol rate/Area] 91 mL/min/{1.73_m2} >60 [facility] Comment on above: mL/min/1.73m2 CKD-EP I Creatinine Equation (2020) Hematocrit Auto (Bld) [Volum e fraction]Ordered By: HEALTH ASSESSMENT on 06-02-2025 Hematocrit (Bld) [Volume fraction] 45.4 % 40-54 [facility] Hemoglobin measurementOrdere d By: HEALTH ASSESSMENT on 06-02-2025 Hemoglobin (Bld) [Mass/Vol] 15.7 g/dL 13.0-16.5 [facility] Ketones Test strip Ql (U)Ord ered By: HEALTH ASSESSMENT on 06-02-2025 Ketones Ql (U) Negative Negative [facility] LDL calc ser/plasOrdered By: HEALTH ASSESSMENT on 06-02-2025 Cholesterol in LDL [Mass/Vol] 54 mg/dL [facility] Comment on above: Dlfgezldic=737-600 m g/dL & Higher Clki=157 mg/dL or greaterFriedwald Equation for LDL-C Laboratory - Chemistry and C hemistry - challengeOrdered By: HEALTH ASSESSMENT on 06-02-2025 AST [Catalytic activity/Vol] 29 U/L <38 [facility] Lactate dehydrogenase (LDH) measurementOrdered By: HEALTH ASSESSMENT on 06-02-2025 LDH [Catalytic activity/Vol] 187 U/L 87-241 [facility] MCV (mean corpuscular volume ) determinationOrdered By: HEALTH ASSESSMENT on 06-02-2025 MCV (RBC) [Entitic vol] 88.5 fL 80-94 [facility] Mean corpuscular hemoglobin (MCH) determinationOrdered By: HEALTH ASSESSMENT on 06-02-2025 MCH (RBC) [Entitic mass] 30.6 pg 27.0-32.0 [facility] Mean corpuscular hemoglobin concentration (MCHC) determinationOrdered By: HEALTH ASSESSMENT on 06-02-2025 MCHC (RBC) [Mass/Vol] 34.6 g/dL 32-36 [facility] Mean platelet volume determi nationOrdered By: HEALTH ASSESSMENT on 06-02-2025 Platelet mean volume (Bld) [Entitic vol] 8.9 fL 6.2-12.0 [facility] Neutrophil percentageOrdered By: HEALTH ASSESSMENT on 09-15-2025 Neutrophils/100 WBC (Bld) 61.9 % 47-70 [facility] Nitrite Test strip Ql (U)Ord ered By: HEALTH ASSESSMENT on 06-02-2025 Nitrite Ql (U) Negative Negative [facility] Nucleated red blood cell per centageOrdered By: HEALTH ASSESSMENT on 06-02-2025 Nucleated RBC/100 WBC (Bld) [Ratio] 0 % 0-5 [facility] Platelet countOrdered By: HE ALTH ASSESSMENT on 06-02-2025 Platelets (Bld) [#/Vol] 178 10*3/uL 150-450 [facility] Potassium measurement (mass/ volume)Ordered By: HEALTH ASSESSMENT on 06-02-2025 Potassium (Unsp spec) [Mass/Vol] 3.8 mmol/L 3.3-5.1 [facility] Protein Test strip Ql (U)Ord ered By: HEALTH ASSESSMENT on 06-02-2025 Protein Ql (U) Negative Negative [facility] RBC Auto (Bld) [#/Vol]Ordere d By: HEALTH ASSESSMENT on 06-02-2025 RBC (Bld) [#/Vol] 5.13 10*6/uL 4.6-6.2 [facility] Screening total cholesterol/ high density lipoprotein (HDL) cholesterol ratioOrdered By: HEALTH ASSESSMENT on 06-02-2025 Cholesterol.total/Choles terol in HDL [Mass ratio] 3.95 {ratio} [facility] Serum creatinine measurement (mass/volume)Ordered By: HEALTH ASSESSMENT on 06-02-2025 Creatinine [Mass/Vol] 1.02 mg/dL 0.70-1.20 [facility] Comment on above: Previous reported re sult: 1.01 mg/dLEdited by: PruffiS on 06/02/25:0855 AMENDED REPORT 06/02/25 0855 CREAT,SERUM previously reported as: 1.01 mg/dL Serum globulin measurementOr dered By: HEALTH ASSESSMENT on 06-02-2025 Globulin (S) [Mass/Vol] 2.9 g/dL 2.2-4.2 [facility] Comment on above: Previous reported re sult: 2.9 g/dLEdited by: AUTOINS on 06/02/25:0855 AMENDED REPORT 06/02/25 0855 GLOB previously reported as: 2.9 g/dL Serum glucose measurement (m ass/volume)Ordered By: HEALTH ASSESSMENT on 06-02-2025 Glucose [Mass/Vol] 88 mg/dL 70-99 [facility] Comment on above: Previous reported re sult: 89 mg/dLEdited by: AUTOINS on 06/02/25:0855 AMENDED REPORT 06/02/25854 GLU previously reported as: 89 mg/dL Serum or plasma alanine carrasquillo otransferase (ALT) measurementOrdered By: HEALTH ASSESSMENT on 06-02-2025 ALT [Catalytic activity/Vol] 42 U/L <47 [facility] Comment on above: Previous reported re sult: 43 U/LEdited by: AUTOINS on 06/02/25:0855 AMENDED REPORT 06/02/25854 ALT previously reported as: 43 U/L Serum or plasma albumin roby urement (mass/volume)Ordered By: HEALTH ASSESSMENT on 06-02-2025 Albumin [Mass/Vol] 3.9 g/dL 3.5-5.0 [facility] Serum or plasma albumin/glob ulin mass ratioOrdered By: HEALTH ASSESSMENT on 06-02-2025 Albumin/Globulin [Mass ratio] 1.3 {ratio} 0.9-2.4 [facility] Serum or plasma alkaline gerardo sphatase measurementOrdered By: HEALTH ASSESSMENT on 06-02-2025 ALP [Catalytic activity/Vol] 115 U/L 40-129 [facility] Comment on above: Previous reported re sult: 114 U/LEdited by: ELIERS on 06/02/25:0855 AMENDED REPORT 06/02/25854 ALK P previously reported as: 114 U/L Serum or plasma calcium roby urement (mass/volume)Ordered By: HEALTH ASSESSMENT on 06-02-2025 Calcium [Mass/Vol] 9.1 mg/dL 7.6-11.0 [facility] Comment on above: Previous reported re sult: 8.9 mg/dLEdited by: ELIERS on 06/02/25:0855 AMENDED REPORT 06/02/25854 CA previously reported as: 8.9 mg/dL Serum or plasma cholesterol in HDL measurement (mass/volume)Ordered By: HEALTH ASSESSMENT on 06-02-2025 Cholesterol in HDL [Mass/Vol] 37 mg/dL Low >40 [facility] Comment on above: National Cholesterol Education Program (NCEP) guidelines:<40 mg/dL: Low HDL-cholesterol (major risk factor for CHD)>= 60 mg/dL: High HDL-cholesterol (negative risk factor for CHD)HDL-cholesterol is affected by a number of factors, e.g. smoking, exercise, hormones, sex and age. Serum or plasma cholesterol measurement (mass/volume)Ordered By: HEALTH ASSESSMENT on 06-02-2025 Cholesterol [Mass/Vol] 146 mg/dL <201 [facility] Comment on above: Cholesterol level, D esirable <200 mg/dLBorderline high cholesterol 200-239 mg/dLHigh cholesterol >=240 mg/dLRecommendations of the NCEP Adult Treatment Panel for the following risk-cutoff thresholds for the [place] population. Serum or plasma urea nitroge n measurement (mass/volume)Ordered By: HEALTH ASSESSMENT on 06-02-2025 Urea nitrogen [Mass/Vol] 12 mg/dL 4-19 [facility] Serum or plasma uric acid me asurement (mass/volume)Ordered By: [facility] ASSESSMENT on 06-02-2025 Urate [Mass/Vol] 5.7 mg/dL 3.5-7.2 [facility] Comment on above: The drugs N-Acetylcy steine and Metamizole may falsely depress this assay. Sodium levelOrdered By: [facility] ASSESSMENT on 06-02-2025 Sodium [Moles/Vol] 139 mmol/L 133-145 [facility] Total proteinOrdered By: [facility] ASSESSMENT on 06-02-2025 Protein [Mass/Vol] 6.9 g/dL 5.9-8.4 [facility] Triglycerides measurementOrd ered By: HEALTH ASSESSMENT on 06-02-2025 Triglyceride [Mass/Vol] 276 mg/dL High <199 [facility] Comment on above: The drugs N-Acetylcy steine and Metamizole may falsely depress this assay. Normal range: <150 mg/dLBorderline High: 150-199 mg/dLHigh: 200-499 mg/dLVery High: >500 mg/dL Urinalysis, Employeeon 06-02 BILIRUBIN URINE Negative Normal Negative [facility] Comment on above: Order Comment: CLEAN CATCH Performed By: #### L 500.2900, L400.0100, L100.0200 #### [facility] [address] [place], [address] Clarity (U) Clear Normal Clear [facility] Comment on above: Order Comment: CLEAN CATCH Performed By: #### L 500.2900, L400.0100, L100.0200 #### [facility] [address] [place], [address] Color (U) Yellow Normal Yellow [facility] Comment on above: Order Comment: CLEAN CATCH Performed By: #### L 500.2900, L400.0100, L100.0200 #### [facility] [address] [place], [address] GLUCOSE, UR Normal Normal Normal [facility] Comment on above: Order Comment: CLEAN CATCH Performed By: #### L 500.2900, L400.0100, L100.0200 #### [facility] [address] [place], [address] KETONE UR Negative Normal Negative [facility] Comment on above: Order Comment: CLEAN CATCH Performed By: #### L 500.2900, L400.0100, L100.0200 #### [facility] [address] [place], [address] LEUK ESTERASE Negative Normal Negative [facility] Comment on above: Order Comment: CLEAN CATCH Performed By: #### L 500.2900, L400.0100, L100.0200 #### [facility] [address] [place], [address] Nitrite Ql (U) Negative Normal Negative [facility] Comment on above: Order Comment: CLEAN CATCH Performed By: #### L 500.2900, L400.0100, L100.0200 #### [facility] [address] [place], [address] OCCULT BLOOD-UR Negative Normal Negative [facility] Comment on above: Order Comment: CLEAN CATCH Performed By: #### L 500.2900, L400.0100, L100.0200 #### [facility] [address] [place], [address] pH UR 8.0 Normal 5.0 - 8.0 [facility] Comment on above: Order Comment: CLEAN CATCH Performed By: #### L 500.2900, L400.0100, L100.0200 #### [facility] [address] [place], [address] PROT DIPSTX Negative Normal Negative [facility] Comment on above: Order Comment: CLEAN CATCH Performed By: #### L 500.2900, L400.0100, L100.0200 #### [facility] [address] [place], [address] SP.GR. DIPSTX 1.010 Normal 1.002-1.030 [facility] Comment on above: Order Comment: CLEAN CATCH Performed By: #### L 500.2900, L400.0100, L100.0200 #### [facility] [address] [place], [address] UROBILI Normal Normal Normal [facility] Comment on above: Order Comment: CLEAN CATCH Performed By: #### L 500.2900, L400.0100, L100.0200 #### [facility] [address] [place], [address] Urine clarityOrdered By: [facility] ASSESSMENT on 06-02-2025 Clarity (U) Clear Clear [facility] Urine color determinationOrd ered By: HEALTH ASSESSMENT on 06-02-2025 Color (U) Yellow Yellow [facility] Urine glucose detectionOrder ed By: HEALTH ASSESSMENT on 06-02-2025 Glucose Ql (U) Normal mg/dl Normal [facility] Urine leukocyte esterase det ection by dipstickOrdered By: HEALTH ASSESSMENT on 06-02-2025 Leukocyte esterase Test strip Ql (U) Negative Negative [facility] Urine pHOrdered By: HEALTH A SSESSMENT on 06-02-2025 pH (U) 8.0 [pH] 5.0 - 8.0 [facility] Urine specific gravity measu rementOrdered By: HEALTH ASSESSMENT on 06-02-2025 Specific gravity (U) [Rel density] 1.010 1.002-1.030 [facility] Urine urobilinogen measureme ntOrdered By: HEALTH ASSESSMENT on 06-02-2025 Urobilinogen Ql (U) Normal mg/dl Normal [facility] White blood cell (WBC) count Ordered By: HEALTH ASSESSMENT on 06-02-2025 WBC (Bld) [#/Vol] 6.6 10*3/uL 4.4-11.0 [facility] Discharge Instructionon 11-0 Discharge Instruction [facility] Medical Records Department [address] [place] [address] Instructions for Home/Discharge Instructions 07/24/24 1038 MR#: [id number] Acct: [id number] Name: HUGO GRACIA Rep #: [id number] : 1975 48 From: Rafael Young MD PCP: Dr. Harry Lujan, DO [place] [facility] [place] Instructions Diet Discharge Diet: No restrictions Activity Discharge Activity: Return to Normal Activity and May Not Drive (while taking narcotic pain medications.) Dressing / Incision Call your doctor if you observe: Fever of 101 or Higher Follow Up Care Please Follow Up With: Rafael Young MD When: Call [phone] for an appointment Test Results: Test results from this visit will be discussed in further detail at your follow-up appointment, if applicable. Discharge Plan Admission Primary Reason for Your Visit: hydrocelectomy Attending Provider: Rafael Young Primary Care Provider: Harry Lujan Instructions Print Language: Tajik Discharge Orders/Prescriptions Prescriptions: New oxycodone 5 mg tablet 5 mg PO Q6H PRN (Reason: pain) 3 Days Qty: 14 0RF cephalexin 500 mg capsule 500 mg PO TID Qty: 15 0RF Continued losartan 50 mg tablet 50 mg PO DAILY hydrochlorothiazide 12.5 mg tablet 25 mg PO DAILY allopurinol 100 mg tablet 300 mg PO DAILY multivitamin Tablet 1 tab PO DAILY Referrals / Follow Up: Rafael Young MD [Med Staff - Active Staff] - Harry Lujan DO [Primary Care Provider] - Disposition Disposition (needs filled in before D/C Order can be placed): Home, Self Care 07/24/24 1038 Rafael Young MD CC: Dr. Harry Lujan DO Signed [facility] MR/POSTOP.ANE 07-24-2024 MR/POSTOP.[facility] Medical Records Department [address] [place] [address] Anesthesia Postop Eval I 07/24/24 1208 MR#: [id number] Acct: [id number] Name: HUGO GRACIA Rep #: [id number] : 1975 48 From: Licha Armstrong PCP: Dr. Harry Lujan DO Status:REG SDC Y Race: C Location: [place] [address] Anesthesia: Postop Eval I Current Vital Signs Temperature: 97 F Pulse Rate: 72 Blood Pressure: 127/78 Respiratory Rate: 16 Pulse Ox: 99 Oxygen Delivery Method: Room Air Assessment Airway patent: Yes Spontaneous unlabored respirations: Yes Mental status: Awake and Calm nausea: No Vomiting: No Anesthesia Complication: No Fluid Hydration Crystalloid volume administer (ml): 400 Total IV fluid infused: 400 Progress Note Anesthesia document: Postop Eval 1 completed: Yes 07/24/24 1210 Date Licha Traore Signature: Date CC: Signed [facility] MR/[id number] 07-24-2024 MR/POST[address] Medical Records Department [address] [place] [address] Anesthesia Postop Eval II 07/24/24 1236 MR#: [id number] Acct: [id number] Name: HUGO GRACIA Rep #: [id number] : 1975 48 From: Mahamed Gordon MD PCP: Dr. Harry Lujan, DO Status:REG SDC Y Race: C Location: [place] [address] Anesthesia Postop Eval I Sum Postop Eval Completion status Anesthesia document: Postop Eval 1 completed: Yes Anesthesia Postop Eval I Summary Anesthesia Postop Eval I Summary: Anesthesia Postop Eval I: Assessment Summary Airway patent Yes 07/24/24 12:10 [employer].GDOTT Spontaneous unlabored Yes 07/24/24 12:10 [employer]ET[employer].GDOTT respirations Mental status Awake,Calm 07/24/24 12:10 [employer].GDOTT nausea No 07/24/24 12:10 [employer] MARKET[employer].GDOTT Vomiting No 07/24/24 12:10 DIRECTOR OF HE[employer]ARE MARKETING.GDOTT Anesthesia Postop Eval I: Fluid Summary Crystalloid volume administer 400 07/24/24 12:10 DIRECTOR OF HE[employer] CARE MARKETING.GDOTT (ml) Colloids volume administered ( ml) Blood Product volume administered (ml) Total IV fluid infused 400 07/24/24 12:10 DIRECT[employer] HE[employer] MARKET[employer].GDOTT Anesthesia Postop Eval I: Summary Notes Anesthesia Complication No 07/24/24 12:10 DIRECT[employer] HE[employer]ET[employer].GDOTT Anesthesia Complication Comment: Post-operative progress note Anesthesia: Postop Eval II Evaluation Mental status: Awake Pain Level: 0 nausea: No Vomiting: No 07/24/24 1236 Date Mahamed Gordon MD Cosigner Signature: Date CC: Signed Normal [facility] Operative Reporton 4 Operative Report [facility] Medical Records Department [address] [place] [address] Operative Report 07/24/24 1153 MR#: [id number] Acct: [id number] Name: HUGO GRACIA Rep #: [id number] : 1975 48 From: Rafael Young MD PCP: Dr. Harry Lujan DO Status:[facility] Location: [place] [address] Operative Report (Standard) Operative Information Surgery/Procedure Performed: Left hydrocelectomy Surgeon: Rafael Young Date of Procedure: 07/24/24 Procedure Start Time: 11:17 Procedure Stop Time: 11:53 Pre-Operative Diagnosis: Left hydrocele Post-Operative Diagnosis: Left hydrocele Select all DRAINS/GRAFTS/IMPLANT S that apply: Drains Drain details: ANNE drain Type of Anesthesia: General Estimated Blood Loss: 5cc Specimen collected: Yes Description of specimen(s) removed: Hydrocele sac Description of surgery: Patient is taken back to the operating room at this with induction of anesthesia the penis and testicles were prepped and draped in usual sterile fashion also shaved, infiltrated the midline raphae with lidocaine made incision in the midline of the scrotum dissected down to the large left hydrocele I then got down to the hydrocele and dissected the hydrocele off the edges of the dartos muscle I then opened up the hydrocele drained and then we delivered the hydrocele out of the scrotum and then incised the hydrocele in the midline I then use electrocautery to excise the edges the hydrocele all the way around and then cauterized extensively and then the cauterized inside the dartos layer and the hydrocele area make sure there is no bleeding. And then I placed the hydrocele back into the dartos space in the space in the hemiscrotum placed a drain to the top part of the scrotum and then the incision was closed in 2 layers with a running 3-0 chromic in a running 4-0 chromic and the skin. Minimal bleeding during the procedure patient acetic is currently being reversed and we will see him back in a week for removal of the drain Surgical Findings: Left hydrocele removed Road Design Draftsperson assistant case manager: No Complications Complications: No Admit VTE Documentation VTE Present on Admission: No VTE Mechan Device Prophylaxis: SCD's VTE Pharm Prophylaxis ordered?: No 07/24/24 4496 Cosigner Signature (if applicable): CC: Dr. Rafael Young MD; Dr. Harry Lujan DO Signed Normal [facility] Surgery Specimen Level IIon 07-24-2024 Surgery Specimen Level II -------- Patient Age/Sex Location Account Attending Physician -------- HUGO GRACIA /[facility] [id number] Dr. Rafael Young MD -------- Specimen: [id number] Received: 07/24/24 Status: FINA Andre Num: [id number] Spec Type: HYDROCELE Subm Dr: Dr. Rafael Young MD HEADER OPERATION: Left hydrocelectomy PRE-OP DIAGNOSIS: Left hydrocele TISSUE SUBMITTED: Left hydrocele sac -------- MICROSCOPIC DIAGNOSIS Left hydrocele sac, hydrocelectomy: Consistent with hydrocele sac with reactive changes. 07/26/2024 MICROSCOPIC DESCRIPTION Slides are reviewed. GROSS DESCRIPTION Received in fixative is one container labeled with the patient's name and designated "Left hydrocele sac." The specimen consists of a piece of gottlieb-white soft tissue measuring 10.5 x 4.5 x 0.3cm. No mass lesion is identified. Time Clock Repairer sections are submitted in one cassette. 07/25/2024 TC:5 [facility]:[id number] -------- Patient Age/Sex Location Account Attending Physician -------- HUGO GRACIA 48/M [facility] [id number] Dr. Rafael Young MD -------- Signed (signature on file) Dr. Leonardo Sheridan MD 07/26/24 1259 -------- Normal [facility] Comment on above: Performed By: #### P SUII #### [facility] [address] [place], [address] PROGRESSon 10-07-2019 PROGRESS HNO ID: [id number] Author: Maritza Pleitez Service: ? Author Type: Cpr Ambulance Driver Type: Progress Notes Filed: 10/07/2019 9:48 AM Note Text: [facility] ACLS NURSE QUICKNOTE Provider Action/FYI: I spoke with Hugo and he states he's transferred care to a different PCP a few years ago. I removed Dr. Acosta as pcp. Patient identified by name and . Maritza Pleitez CMA Normal [facility] CNPTOUTREACHon 10-02-2019 CNPTOUTREACH Patient Outreach (INTMWS) HUGO GRACIA ([id number]) 1975 M Date Time Provider Department 10/02[facility] During your visit today, we recorded the following information about you: Maritza Pleitez CMA 10/07/2019 9:48 AM Signed [facility] CARE GAP REGISTRY DOCUMENTATION (OUTSIDE TEAMLET) Provider Action/FYI: PSR Action/FYI: - verify PCP / re-establish care Health Maintenance Due: DTAP,TDAP,TD(1 - Tdap) due on 1985 BP CONTROLLED (<130/80) due on 1992 ANNUAL PCP TEAM CHRONIC DISEASE VISIT due on 06/07/2018 INFLUENZA(1) due on 05/19/2019 DIABETES SCREEN due on 2019 Patient identified by name and date of . Last BP/Labs: Blood Pressure: Last 3 Encounter BP Readings: Date: BP: 06/21/2017 118/78 06/07/2017 150/102[left arm[ 06/07/2016 122/94 Lipids: Cholesterol (no units) Date Value 06/02/2016 180 HDL Cholesterol (no units) Date Value 06/02/2016 48 LDL Cholesterol (no units) Date Value 06/02/2016 77 Triglyceride (no units) Date Value 06/02/2016 277 HGB A1C: No results found for: HBA1C TSH: No results found for: TSH) ? Patient has the following care gap registry disease diagnosis:HTN ? Hyperglyceridemia ? Patient has the following open care gaps: Health Maintenance Due: DTAP,TDAP,TD(1 - Tdap) due on 1985 BP CONTROLLED (<130/80) due on 1992 ANNUAL PCP TEAM CHRONIC DISEASE VISIT due on 06/07/2018 INFLUENZA(1) due on 05/19/2019 DIABETES SCREEN due on 2019 ? Last office visit: 06/07/2016 ? Future office visit: verify pcp/re-establish care with PCP JESUS MANUEL Chiu CMA 10/07/2019 9:48 AM Signed [facility] ACLS NURSE QUICKNOTE Provider Action/FYI: I spoke with Hugo and he states he's transferred care to a different PCP a few years ago. I removed Dr. Acosta as pcp. Patient identified by name and . Maritza Pleitez CMA Allergies As of Date: 10/02/2019 Noted Allergy Reaction LISINOPRIL 08/08/2017 3 - Cough POISON INGRID 03/16/2010 2 - Rash Date Reviewed: 06/21/2017 Reviewed by: Jessica Rucker (Neda) NEDA Lynne - Fully Assessed Reason for Visit: PHMA/Care Gap Outreach [[id number]] Prescriptions as of 10/02/2019 Sig: LOSARTAN 50 MG TABLET Take 1 tablet by mouth once d* HYDROCHLOROTHIAZIDE 25 MG TAB* Take 1 tablet by mouth once d* ALLOPURINOL 100 MG TABLET Take 2 tablets by mouth once * COMPOUNDED PRESCRIPTION Referral to dietitian at Why * COLCHICINE 0.6 MG TABLET Take 2 tabs by mouth, followe* COMPOUNDED PRESCRIPTION KNEE HIGH COMPRESSION STOCKIN* FLAXSEED OIL Take 1 tablet by mouth once d* Problem List As Of Date 10/02/2019 Noted Resolved Pure Hyperglyceridemia [E78.1] 06/11/2009 Gout [M10.9] 03/16/2010 HTN (hypertension) [I10] 09/28/2012 Rosacea [L71.9] 05/10/2013 More... Venous insufficiency (chronic) (peripheral) [I8*12/22/2015 Obesity (BMI 35.0-39.9 without comorbidity) [E6* Encounter Status:Closed by MARITAZ PLEITEZ CMA on 10/07/19 Normal [facility] PROGRESSon 10-02-2019 PROGRESS HNO ID: [id number] Author: Maritza Pleitez Service: ? Author Type: Cpr Ambulance Driver Type: Progress Notes Filed: 10/07/2019 9:48 AM Note Text: [facility] CARE GAP REGISTRY DOCUMENTATION (OUTSIDE TEAMLET) Provider Action/FYI: PSR Action/FYI: - verify PCP / re-establish care Health Maintenance Due: DTAP,TDAP,TD(1 - Tdap) due on 1985 BP CONTROLLED (<130/80) due on 1992 ANNUAL PCP TEAM CHRONIC DISEASE VISIT due on 06/07/2018 INFLUENZA(1) due on 05/19/2019 DIABETES SCREEN due on 2019 Patient identified by name and date of . Last BP/Labs: Blood Pressure: Last 3 Encounter BP Readings: Date: BP: 06/21/2017 118/78 06/07/2017 150/102[left arm[ 06/07/2016 122/94 Lipids: Cholesterol (no units) Date Value 06/02/2016 180 HDL Cholesterol (no units) Date Value 06/02/2016 48 LDL Cholesterol (no units) Date Value 06/02/2016 77 Triglyceride (no units) Date Value 06/02/2016 277 HGB A1C: No results found for: HBA1C TSH: No results found for: TSH) ? Patient has the following care gap registry disease diagnosis:HTN ? Hyperglyceridemia ? Patient has the following open care gaps: Health Maintenance Due: DTAP,TDAP,TD(1 - Tdap) due on 1985 BP CONTROLLED (<130/80) due on 1992 ANNUAL PCP TEAM CHRONIC DISEASE VISIT due on 06/07/2018 INFLUENZA(1) due on 05/19/2019 DIABETES SCREEN due on 2019 ? Last office visit: 06/07/2016 ? Future office visit: verify pcp/re-establish care with PCP Maritza Pleitez CMA Normal [facility] Encounters Encounter Date Encounter Type Care Provider Facility Start: 07-09-2025 ambulatory Harry Le Facility: [facility] Start: 06-16-2025 End: 06-16-[address] Harry Lujan DO Work Phone: [facility] Start: 06-16-2025 End: 06-16-[address] Harry Lujan DO [facility] Start: 06-16-2025 End: 06-16-2025 ambulatory Harry Le Facility:[facility] Start: 06-02-2025 Registered Referred [facility] RISK [facility] Start: 06-02-2025 ambulatory [facility] Facility: [facility] Start: 07-24-2024 End: 07-24-2024 ambulatory [facility] Facility:[facility] Start: 01-09-2024 End: 01-09-2024 ambulatory [facility] Work Phone: Start: 01-09-2024 End: 01-09-2024 Patient encounter procedure [facility], [facility] Work Phone: Procedures Date Procedure Procedure Detail Performing Clinician Start: 06-16-2025 Prostate specific an tigen measurement Dr. Harry Lujan DO Work Phone: Comment on above: This test was perfor med using the [employer] tPSA method. Measured values of a patient sample can vary depending on the testing procedure used. PSA values determined on patient samples by different testing procedures cannot be used interchangeably. If there is a change in PSA assays while monitoring therapy, sequential testing should be performed to confirm baseline values. Start: 06-02-2025 Urnls dip stick/tabl et reagent auto microscopy Dr. Harry Lujan DO Work Phone: Start: 06-02-2025 Serum inorganic phos phate measurement Dr. Harry Lujan DO Work Phone: Start: 01-09-2024 X-ray of both feet Immunizations Immunization Date Immunization Notes Care Provider Fa cility 06-10-2024 Covid (Spikevax) Dr. Harry Justice DO Work Phone: [facility] 06-10-2024 influenza, seasonal, injectable, preservative free Dr. Harry Lujan DO Work Phone: [facility] 07-06-2023 Covid (Spikevax) [facility] 07-06-2023 influenza, injectabl e, quadrivalent, preservative free [facility] 07-06-2022 influenza, injectabl e, quadrivalent, preservative free [facility] 07-01-2022 Covid Moderna Bivale nt Booster [facility] 07-22-2021 tetanus toxoid, redu anand diphtheria toxoid, and acellular pertussis vaccine, adsorbed [facility] 07-21-2021 Covid (Moderna) [facility] 06-23-2021 influenza, injectabl e, quadrivalent, preservative free [facility] 10-27-2020 Covid (Moderna) [facility] 09-29-2020 Covid (Moderna) [facility] 08-10-2020 influenza, injectabl e, quadrivalent, preservative free [facility] 07-09-2019 influenza, injectabl e, quadrivalent, preservative free [facility] 07-02-2018 influenza, injectabl e, quadrivalent, preservative free [facility] 07-12-2017 influenza, injectabl e, quadrivalent, preservative free [facility] 06-16-2016 influenza, injectabl e, quadrivalent, preservative free [facility] 07-02-2015 influenza, injectabl e, quadrivalent, preservative free [facility] 06-04-2014 influenza, injectabl e, quadrivalent, preservative free [facility] 01-15-2014 hepatitis B vaccine, pediatric or pediatric/adolescent dosage [facility] Payers Date Payer Category Payer Self-pay [id number] 2024 Unknown [id number] 2016 Unknown [facility] MHS DO NOT USE 22 [id number] Unknown [id number] Unknown [id number] Unknown [id number] Unknown [id number] Social History Date Type Detail Facility Start: 08-09-2023 Tobacco smoking status TNIS Unknown if ever smoked [facility] Start: 07-20-2019 Occasional [facility] Start: 07-20-2019 None [facility] Start: 07-20-2019 Spouse/ Signif icant Other [facility] Start: 07-22-2019 Chew [facility] Start: 1975 Sex Assigned At Male W [facility] Start: 07-18-2024 Tobacco smoking status NHIS Smokes tobacco daily (finding) [facility] Sex Male [facility] Clinical Note 07-24-2024 Note Date & Type Note Facility 07-24-2024 Note [facility] Medical Records Department [address] [place] [address] History Physical Exam 07/24/24 1038 MR#: [id number] Acct: [id number] Name: HUGO GRACIA Rep #: [id number] : 1975 48 From: Rafael Young MD PCP: Dr. Harry Lujan, DO Status:[facility] Location: [place] [address] HPI - General General Date of Service: 07/24/24 HPI Narrative HUGO GRACIA, is a 48 M who presents for a hydrocelectomy [facility] Medical History Acute bronchitis Acute maxillary sinusitis, unspecified Alcohol use DVT (deep venous thrombosis) Back pain Loss of consciousness Chewing tobacco use History of edema History of stress test Fracture of finger Gout HTN (hypertension) Home Medications ???Medication ???Instructions ???Recorded ???Last Taken ???Type allopurinol 100 mg tablet 300 mg PO DAILY gout 07/25/18 Unknown History hydrochlorothiazide 12.5 mg tablet 25 mg PO DAILY htn 07/25/18 Unknown History losartan 50 mg tablet 50 mg PO DAILY htn 07/25/18 07/24/24 04:45 History multivitamin 1 tab PO DAILY 06/25/21 Unknown History cephalexin 500 mg capsule 500 mg PO TID #15 caps 07/24/24 Unknown Rx oxycodone 5 mg tablet 5 mg PO Q6H PRN pain 3 days #14 07/24/24 Unknown Rx tabs Allergy/AdvReac Type Severity Reaction Status Date / Time No Known Allergies Allergy Verified 07/24/24 09:35 Family History Other CVA (cerebral vascular accident) Cancer Hypertension Surgical History Hx of colonoscopy Hx of surgical procedure Hx of vasectomy History of appendectomy History of tonsillectomy Social History Smoking Status: Current every day smoker tobacco type: smokeless tobacco alcohol intake: current Alcohol type: beer Vital Signs Vital Signs Vital Signs: 07/24/24 09:37 07/24/24 09:37 07/24/24 09:44 Temperature 97.7 F L 97.7 F L Temperature Source Temporal Pulse Rate 74 74 Respiratory Rate 16 16 Respiratory Pattern Normal Blood Pressure 146/84 H 146/84 H Blood Pressure Mean 104 Blood Pressure Source Monitor Blood Pressure Position Sitting Blood Pressure Location Left Arm Pulse Ox 97 97 Oxygen Delivery Method Room Air Weight Weight: 109 kg Body Mass Index (BMI) 36.5 07/24/24 1038 Cosigner Signature (if applicable): CC: Dr. Rafael Young MD; Dr. Harry Lujan DO Signed [facility] Evaluation note Note Date & Type Note Facility Evaluation note No assessment information availa ble [facility] Work Phone: Reason for referral (narrative) Note Date & Type Note Facility Reason for referral (narrative) No reason for referral information available [facility] Work Phone: Summary Purpose Family History No Family History Records Found Relationship Condition Age at Onset Recorded Date/T delvin Not Specified Malignant neoplasm Unknown Hypertension Unknown Cerebrovascular accident (CVA) Unknown Advance Directives No Advanced Directives Records Found Advance Directive Response Recorded Date/ Time Living Will Yes August 09, 023 8:59am Power of Casino Floorperson Yes August 09, 2023 8:59am Chief Complaint and Reason for Visit Chief Complaint L FOOT PAIN Additional Source Comments (unrecognized sect ion and content) No Status Records FoundNo Status Records Found INFORMATION SOURCE (unrecogn ized section and content) DATE CREATED AUTHOR 10/07/2019 [facility] DATE CREATED AUTHOR AUTHOR'S ORGANIZ ATION 06/27/2025 [facility] Care Teams (unrecognized sec tion and content) Team Status: Active Member Role Status Dates Dr. Harry Lujan DO Family Provider Active Dr. Harry Lujan DO Primary Care Provider Active Team Status: Inactive Member Role Status Dates Dr. Harry Lujan DO Primary Care Prov ider, Attending Provider, Referring Provider Active Team Status: Active Member Role/Relationship Status Dates Dr. Harry Lujan DO Primary care physician Active Team Status: Active Member Role/Relationship Status Dates Dr. Harry Lujan DO Primary care physician Active Start: June 02, 2025 Health Risk Assessment Attending physician Active Start: June 02, 2025 Health Risk Assessment Referring Provider Active Start: June 02, 2025 Team Status: Inactive Member Role/Relationship Status Dates Dr. Harry Lujan DO Primary care physician Active Start: June 16, 2025 End: June 16, 2025 Dr. Harry Lujan DO Attending physician Active Start: June 16, 2025 End: June 16, 2025 Dr. Harry Lujan DO Referring Provider Active Start: June 16, 2025 End: June 16, 2025 Goals (unrecognized section and content) Goals may be documented in a n alternate sectionGoals may be documented in an alternate section FOR RECORDS PERTAINING TO PATIENTS WHO ARE OR HAVE BEEN ENROLLED IN A CHEMICAL DEPENDENCY/SUBSTANCEABUSE PROGRAM, SOME INFORMATION MAY BE OMITTED. This clinical summary was aggregated from multiple sources. Caution should be exercised in using it in the provision of clinical care. This summary normalizes information from multiple sources, and as a consequence, information in this document may materially change the coding, format and clinical context of patient data. In addition, data may be omitted in some cases. CLINICAL DECISIONS SHOULD BE BASED ON THE PRIMARY CLINICAL RECORDS. [facility] [employer] [facility]. provides no warranty or guarantee of the accuracy or completeness of information in this document.
--- NOTE | 2025-07-09 18:30 | CA.SCORE ---
Calcium Scoring Date of Study:: 07/09/25 Indications Indications: HTN Coronary Calcium Scoring: High-resolution Computed Tomographic imaging of the chest was performed on [ 07/09/25], with particular attention paid to the coronary arteries. Images from the examination were analyzed for the presence and extent of coronary artery calcification , using coronary calcium quantification software. The patient tolerated the procedure well and there were no complications. The results of the coronary calcification analysis are provided below. Findings Coronary Artery Left Main (LM): 0 Left Anterior Descending (LAD): 0 Left Circumflex (LCX): 0 Right Coronary Artery (RCA): 0 Total Agatston Score: 0 Percentile Rankin Calcium Scoring Interpretation: Different methods to categorize the overall amount of coronary plaque. Overall amount CAC SIS Visual of coronary plaque P1 Mild -100 <2 1-2 vessels with mild amount of plaque P2 Moderate 101-300 3-4 1-2 vessels with moderate amount, 3 vessels with mild amount of plaque P3 Severe 301-999 5-7 3 vessels with moderate amount, 1 vessel with severe amount of plaque P4 Extensive >1000 >8 2-3 vessels with severe amount of plaque Conclusion: No atherosclerotic plaquing noted.
== END | disposition home or self-care (01) ==
PROVIDERS: PCP Family Medicine; Referring Provider Family Medicine; Visit Provider Family Medicine
DX: Z13.6 Encounter for screening for cardiovascular disorders (principal)
CPT/HCPCS: 75571; 76380